=== PATIENT | female | born 1965 | race Caucasian/White ===

== ENCOUNTER 2023-10-03 09:09 | Day surgery (SDC) | payer OTHER, SELFPAY ==
--- NOTE | 2023-10-03 09:19 | EKG12_ITS ---
Test Reason : PRE OP Blood Pressure : / mmHG Vent. Rate : 074 BPM Atrial Rate : 074 BPM P-R Int : 154 ms QRS Dur : 080 ms QT Int : 380 ms P-R-T Axes : 054 033 064 degrees QTc Int : 421 ms Normal sinus rhythm Normal ECG No previous ECGs available Confirmed by Marty Kaufman ([id number]), social media editor ZAHIRA GARY ([id number]) on 10/06/2023 6:17:43 AM Referred By: Yoel Neal Confirmed By:Marty Kaufman
--- NOTE | 2023-10-03 09:20 | PCM.PRE.AN2 ---
ASA Classification* ASA Classification ASA Classification: 2 and 3 Assessment & Plan Anesthesia* Anesthesia Assessment Anesthesia Assessment: Discussed sedation and/or anesthesia options, risks, benefits, and alternatives with patient/parents/legal guardian/POA. Questions invited. The patient/parents/legal guardian/POA seems to understand and agrees to proceed with anesthesia plan. Reviewed the physical assessment, medical history, allergy history and patient home medications list prior to surgery/procedure/anesthetic and documented any changes. Performed airway and anesthesia risk assessments. 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 When Was Last Pacemaker Check QUESTION #4 FULL TEXT: You/Your Family Experience fever (hyperthermia) with Anesthesia Last Oral Intake Last Oral intake: Last Oral Intake NPO since Meds taken in AM with sips of water? Meds patient instructed to take am of surgery PONV PONV - green building energy engineer: PONV - green building energy engineer Female Yes 09/27/23 11:52 HX of Motion Sickness No 09/27/23 11:52 HX of N/V After Surgery No 09/27/23 11:52 Non-Smoker Yes 09/27/23 11:52 Duration of Surgery greater No 09/27/23 11:52 than 60 minutes Number of Risk Factors 2 09/27/23 11:52 PONV Score Moderate Risk 09/27/23 11:52 Respiratory Assessment Respiratory Assessment - green building energy engineer: Respiratory Tract Infection Hx - green building energy engineer Hx Respiratory Tract Infection No 09/27/23 11:52 STOP Sleep Apnea STOP Sleep Apnea - green building energy engineer: STOP Sleep Apnea - green building energy engineer Hx Hypertension No 09/27/23 11:52 Hx Sleep Apnea No 09/27/23 11:52 CPAP BIPAP Do you snore loudly (louder Yes 09/27/23 11:52 than talking or can be heard Do you often feel tired/ Yes 09/27/23 11:52 fatigued/ sleepy during daytime? Has anyone observed you stop No 09/27/23 11:52 breathing during sleep? STOP Results Positive 09/27/23 11:52 QUESTION #5 FULL TEXT : Do you snore loudly (louder than talking or can be heard through closed doors)? Tobacco Use History Tobacco Use History - green building energy engineer: Tobacco Use History - green building energy engineer Tobacco Use Smoking Status Former smoker 09/27/23 11:52 Hx Tobacco Use No 09/27/23 11:52 Years Smoking Packs Smoked per Day Smoking Cessation Date was Yes - quit smoking within 15 09/27/23 11:52 within the last 15 years years Hx Smoking Cessation Date 03/27/16 09/27/23 11:52 Hx Smoking Cessation No 09/27/23 11:52 Counseling Hematologic Medial History Hematologic Hx - green building energy engineer: Hematologic Medical Hx - chief psychologist Hx of Blood Transfusion No 09/27/23 11:52 Hx of Transfusion in last 3 No 09/27/23 11:52 Months Date of Last Transfusion (if within last 3 months) Ever experience any problems No 09/27/23 11:52 with transfusion(s)? Specify any problems Hx of Preganancy in last 3 No 09/27/23 11:52 Months Nurse Filling Out Transfusion DSCHRIBER 09/27/23 11:52 & Questions: Date: 09/27/23 09/27/23 11:52 Time: 11:53 09/27/23 11:52 Patient unable to answer at this time (ie. confused, unrespo /Reproduction History /Reproductive History - green building energy engineer: /Reproductive Hx- green building energy engineer Hx Now No 09/27/23 11:52 Gestational Age (in weeks): EDC: Hx Hx Para Hx Section SAB No 09/27/23 11:52 Active Medications Active Medications: Current Medications Generic Name Dose Route Start Last Admin Trade Name Freq PRN Reason Stop Dose Admin Lactated Ringer's 1,000 mls @ 15 mls/hr 10/03/23 09:30 IV .Q48H MARÍA PFSH Medical History Post-menopausal Anxiety Marijuana use Alcohol use History of steroid therapy Back pain Syncope Blackout Hoarseness Asthma Former smoker Leg cramps Home Medications ?Medication ?Instructions ?Recorded ?Last Taken ?Type dextroamphetamine-amphetamine 10 1 tab PO 1300 09/27/23 Unknown History mg tablet dextroamphetamine-amphetamine ER 1 cap PO DAILY 09/27/23 Unknown History 30 mg 24hr capsule,extend release diphenhydramine HCl 25 mg tablet 25 mg PO Q8H PRN allergic symptoms 09/27/23 Unknown History (Allergy Medicine) Allergy/AdvReac Type Severity Reaction Status Date / Time shellfish derived (lobster) Allergy Severe Anaphylaxis Verified 09/27/23 11:49 shrimp Allergy Severe Anaphylaxis Verified 09/27/23 11:49 Surgical History Hx of hysterectomy Hx of neck surgery History of tonsillectomy and adenoidectomy Social History Smoking Status: Former smoker Review of Systems (Anesthesia) ROS Narrative System reviewed and no additional complaints, except as documented.
[2023-10-03 09:40] VITALS: BP 138/89; PULSE 81; RESP 16; TEMP 36.3; O2SAT 100; BMI 22.6
[2023-10-03] MEDS: Lactated Ringers 1,000 ML 15 ML IV (09:43)
[2023-10-03 09:51] LABS: Hematocrit 41.1 % (37-47); Hemoglobin 13.5 g/dL (12.0-15.0); Mean Corp Hgb Conc 32.8 g/dL (32-36); Mean Corpuscular Hgb 29.1 pg (27.0-32.0); Mean Corpuscular Volume 88.6 fL (81-99); Mean Platelet Vol. 9.8 fl (6.2-12.0); Platelet Count 263 K/mm3 (150-450); RBC Distribution Width CV 13.2 % (11.6-14.6); RBC Distribution Width SD 43.2 fl (35.1-43.9); Red Blood Count 4.64 M/mm3 (4.2-5.4); White Blood Count 5.4 K/mm3 (4.4-11.0)
--- NOTE | 2023-10-03 10:44 | PCM.DC ---
Discharge Instructions Diet Discharge Diet: No restrictions Activity Discharge Activity: Return to Normal Activity Dressing / Incision Call your doctor if your incision/area has: Increased Pain/ Swelling Follow Up Care Please Follow Up With: Gibson Neal MD When: 1 week Test Results: Test results from this visit will be discussed in further detail at your follow-up appointment, if applicable. Discharge Plan Admission Attending Provider: Gibson Neal Primary Care Provider: Sushant Fernandez Instructions Print Language: Croatian Discharge Orders/Prescriptions Prescriptions: No Action dextroamphetamine-amphetamine 10 mg tablet 1 tab PO 1300 dextroamphetamine-amphetamine 30 mg capsule,extended release 24hr 1 cap PO DAILY diphenhydramine HCl [Allergy Medicine] 25 mg tablet 25 mg PO Q8H PRN (Reason: allergic symptoms) Referrals / Follow Up: Sushant Fernandez MD [Primary Care Provider] - Disposition Disposition (needs filled in before D/C Order can be placed): Home, Self Care
--- NOTE | 2023-10-03 10:44 | PCM.OPRPT ---
Problems Associated Problem List Diagnoses (1) Vocal cord mass: Report of Operation Date of Procedure: 10/03/23 Pre-Operative Diagnosis: right vocal cord mass Post-Operative Diagnosis: right vocal cord mass Surgery/Procedure Performed:: direct laryngoscopy with biopsy and use of operative telescope Surgeon: Gibson Neal Type of Anesthesia: General Description of Procedure: on the day of the procedure, after appropriate informed consent was obtained the patient was brought to the operating room and placed in supine position on the operating table. she was placed under general endotracheal anesthesia by the anesthesiologist. the endotracheal tube was secured, the eyes were taped. the table was rotated 90 degrees toward the surgeon. a tooth guard was placed. a collins laryngoscope was inserted into the oral cavity with care not to damage the lips, teeth or gums. it was suspeded from the carrera. the zero degree telescope was used to evaluate the larynx. there was a 3mm right mid-cord nodule. this was removed with endoscopic scissor. hemostasis was observed. the table was rotated 90 degrees toward the anesthesiologist. she was extubated uneventfully and transferred to the PACU in stable condition.
[2023-10-03 10:47] LABS: Anion Gap 5 (5-15); BUN 18 mg/dL (7-18); BUN/Creat Ratio 19.1 RATIO (10-20); Calcium,Total 9.4 mg/dL (8.5-10.1); Chloride 108 mmol/L (98-107); Creatinine, Serum 0.94 mg/dL (0.55-1.02); EST Glomerular Filtration Rate 65 mL/min (>60); Est Glom Filt Rate - Afr Amer 79 mL/min (>60); Estimated Creatinine Clearance 54.62 ml/min; Glucose 93 mg/dL (74-106); Potassium 3.7 mmol/L (3.5-5.1); Sodium Level 139 mmol/L (136-145)
[2023-10-03] MEDS: Oxymetazoline 0.05% 1 SPRAY SPRAY.BTL 15 SPRAY (10:50)
[2023-10-03 11:15] VITALS: BP 138/89; BP 142/76; PULSE 96; RESP 16; TEMP 36.5; O2SAT 96
--- NOTE | 2023-10-03 11:16 | PCM.POST.ANE ---
Anesthesia: Postop Eval I Current Vital Signs Temperature: 97.7 F Pulse Rate: 94 Blood Pressure: 146/68 Respiratory Rate: 16 Pulse Ox: 96 Oxygen Delivery Method: Room Air Assessment Airway patent: Yes Spontaneous unlabored respirations: Yes Mental status: Awake and Calm nausea: No Vomiting: No Anesthesia Complication: No Fluid Hydration Crystalloid volume administer (ml): 600 Total IV fluid infused: 600 Progress Note Anesthesia document: Postop Eval 1 completed: Yes
[2023-10-03 11:17] VITALS: BP 146/68; PULSE 94; RESP 16; TEMP 36.5; O2SAT 96
[2023-10-03 11:25] VITALS: BP 138/89; BP 145/91; PULSE 97; RESP 18; TEMP 36.2; O2SAT 96
--- NOTE | 2023-10-03 11:48 | POSTOPAN2_ITS ---
Anesthesia Postop Eval I Sum Postop Eval Completion status Anesthesia document: Postop Eval 1 completed: Yes Anesthesia Postop Eval I Summary Anesthesia Postop Eval I Summary: Anesthesia Postop Eval I: Assessment Summary Airway patent Yes 10/03/23 11:17 NET WEB APPLICATION DEVELOPER.ANUPAMU Spontaneous unlabored Yes 10/03/23 11:17 NET WEB APPLICATION DEVELOPER.TANA respirations Mental status Awake,Calm 10/03/23 11:17 NET WEB APPLICATION DEVELOPER.ANUPAMU nausea No 10/03/23 11:17 NET WEB APPLICATION DEVELOPER.MELINDALOU Vomiting No 10/03/23 11:17 NET WEB APPLICATION DEVELOPER.TANA Anesthesia Postop Eval I: Fluid Summary Crystalloid volume administer 600 10/03/23 11:17 NET WEB APPLICATION DEVELOPER.TANA (ml) Colloids volume administered ( ml) Blood Product volume administered (ml) Total IV fluid infused 600 10/03/23 11:17 NET WEB APPLICATION DEVELOPER.TANA Anesthesia Postop Eval I: Summary Notes Anesthesia Complication No 10/03/23 11:17 NET WEB APPLICATION DEVELOPER.TANA Anesthesia Complication Comment: Post-operative progress note Anesthesia: Postop Eval II Evaluation Mental status: Awake Pain Level: 0 nausea: No Vomiting: No
--- NOTE | 2023-10-03 11:48 | PCM.POSTANE2 ---
Anesthesia Postop Eval I Sum Postop Eval Completion status Anesthesia document: Postop Eval 1 completed: Yes Anesthesia Postop Eval I Summary Anesthesia Postop Eval I Summary: Anesthesia Postop Eval I: Assessment Summary Airway patent Yes 10/03/23 11:17 DECK HAND.ANUPAMU Spontaneous unlabored Yes 10/03/23 11:17 DECK HAND.TANA respirations Mental status Awake,Calm 10/03/23 11:17 DECK HAND.ANUPAMU nausea No 10/03/23 11:17 DECK HAND.MELINDALOU Vomiting No 10/03/23 11:17 DECK HAND.TANA Anesthesia Postop Eval I: Fluid Summary Crystalloid volume administer 600 10/03/23 11:17 DECK HAND.TANA (ml) Colloids volume administered ( ml) Blood Product volume administered (ml) Total IV fluid infused 600 10/03/23 11:17 DECK HAND.TANA Anesthesia Postop Eval I: Summary Notes Anesthesia Complication No 10/03/23 11:17 DECK HAND.TANA Anesthesia Complication Comment: Post-operative progress note Anesthesia: Postop Eval II Evaluation Mental status: Awake Pain Level: 0 nausea: No Vomiting: No
--- NOTE | 2023-10-03 12:00 | VOCOB_PTH ---
PATIENT: BONNIE WILKINS LOC: [facility] [place] U#:[id number] AGE/SX: 58/F ROOM: RE10/03/[address]: Dr. Gibson Neal MD : [id number] BED: DIS: 10/03/2023 SPEC #: [id number] RECD: 10/03/23 12:40 STATUS: JOSE SPRING #: [id number] KIM: 10/03/23 12:[address]: Gibson Neal DEPT: SURGICAL PATHOLOGY RECD BY: Abimbola Crowell ENTERED: 10/03/23 13:58 SP TYPE: VOCAL CORD OTHR DR: Dr. Sushant Fernandez MD Tissues: Vocal cord, NOS Procedures: Surgery Specimen Level IV HEADER OPERATION: Diagnostic laryngoscopy with biopsy PRE-OP DIAGNOSIS: Hoarseness, gastro-esophageal reflux TISSUE SUBMITTED: Right vocal cord mass MICROSCOPIC DIAGNOSIS Right vocal cord mass, biopsy: Benign mucosal polyp. SJ/ 10/04/2023 MICROSCOPIC DESCRIPTION Slides are reviewed. GROSS DESCRIPTION Received in fixative is one container labeled with the patient's name and designated Right vocal cord mass. The specimen consists of one irregular fragment of light mcduffie soft tissue that measures 0.4 x 0.1 x 0.1 cm. The specimen is totally submitted in one cassette. CINTHIA/ 10/03/2023 TC:5 CPT:72369
== END 2023-10-03 12:16 | disposition home or self-care (01) ==
LOC: SDC 09:13 → AC 10:24
PROVIDERS: PCP Internal Medicine; Referring Provider Otolaryngology; Visit Provider Otolaryngology
PROC: 0CJS8ZZ Inspection of Larynx, Via Natural or Artificial Opening Endoscopic (ICD-10-PCS; CPT 31575; principal; 2023-10-03 11:55)
DX: J38.1 Polyp of vocal cord and larynx (principal); Z87.891 Personal history of nicotine dependence
CPT/HCPCS: 31536; 00320; 80048; 85027; 88305; 93005; J7120; J2405